=== PATIENT | female | born 1945 | race Caucasian/White ===

== ENCOUNTER → 2023-05-08 09:01 | Outpatient (REF) | payer BC, OTHER, SELFPAY ==
[2023-05-08 09:51] LABS: % Basophils 0.9 % (0-2); % Eosinophils 1.8 % (0-6); % Immature Granulocytes 0.5 % (0-0.5); % Lymphocytes 22.8 % (20.5-51.1); % Monocytes 8.8 % (1.7-9.3); % Neutrophils 65.2 % (42.2-75.2); Absolute Basophils 0.1 10^3/uL (0-0.2); Absolute Eosinophils 0.1 10^3/uL (0-0.7); Absolute Lymphocytes 1.3 10^3/uL (1.2-3.4); Absolute Monocytes 0.5 10^3/uL (0.1-0.6); Absolute Neutrophils 3.6 10^3/uL (1.4-6.5); Hematocrit 35.3 % (37.0-47.0); Hemoglobin 12.2 g/dL (12.0-16.0); Mean Corp Hgb Conc. 34.6 g/dL (33.0-37.0); Mean Corpuscular Hgb 32.9 pg (27.0-31.0); Mean Corpuscular Volume 95.1 fL (81.0-99.0); Mean Platelet Volume 9.1 fL (7.4-10.4); Nucleated Red Blood Cells % 0 %; Platelet Count 327 10^3/uL (130-400); Red Blood Cell Count 3.71 10^6/uL (4.20-5.40); Red Cell Dist. Width 13.8 % (11.5-14.5); White Blood Cell Count 5.5 10^3/uL (4.8-10.8)
[2023-05-08 10:25] LABS: ALT (SGPT) 19 U/L (0-35); AST (SGOT) 24 U/L (14-36); Albumin 4.3 g/dl (3.5-5.0); Alkaline Phosphatase 79 U/L (38-126); Blood Urea Nitrogen 31 mg/dl (7-17); Calcium 9.9 mg/dl (8.4-10.2); Carbon Dioxide 27 mmol/L (22-30); Chloride 102 mmol/L (98-107); Glucose 115 mg/dl (70-99); HDL Cholesterol 53 mg/dl; LDL Cholesterol, Calculated 136 mg/dl; Potassium 4.4 mmol/L (3.5-5.1); Sodium 141 mmol/L (135-145); Total Bilirubin 0.9 mg/dl (0.2-1.3); Total Cholesterol 230 mg/dl (50-199); Total Protein 7.5 g/dl (6.3-8.2); Triglyceride 207 mg/dl (10-149); Very Low Density Lipoprotein 41 mg/dl (0-30); eGFR 58.02
[2023-05-08 10:52] LABS: TSH Reflex To Free T4 2.82 uIU/ml (0.47-4.68)
[2023-05-08 11:00] LABS: Urine Albumin Trace (Neg - Trace); Urine Bilirubin Negative (Negative); Urine Character Clear (Clear); Urine Color Yellow; Urine Glucose Negative (Negative); Urine Ketone Negative (Negative); Urine Leukocyte Negative (Negative); Urine Nitrite Negative (Negative); Urine Occult Blood Negative (Negative); Urine Urobilinogen Negative (Neg - 1+); Urine pH 6.5 (5.0-9.0)
[2023-05-08 13:55] LABS: Glycohemoglobin (HgbA1c) 6.6 % (4.0-5.6)
[2023-05-10 01:43] LABS: SSA 52 (Ro)(ENA) Ab, IgG 1 AU/mL (0-40); SSA 60 (Ro)(ENA) Ab, IgG 1 AU/mL (0-40); SSB (La)(ENA) Ab, IgG 0 AU/mL (0-40)
[2023-05-11 02:04] LABS: Mumps Virus IgM 0.26 IV (<=0.79)
[2023-05-13 14:27] LABS: Mumps Virus IgG Positive
== END ==
LOC: REG 09:01
PROVIDERS: ATTENDING PHYSICIAN Nurse Practitioner Adult Health
DX: Z13.9 Encounter for screening, unspecified (principal); R73.03 Prediabetes; K11.20 Sialoadenitis, unspecified; R68.2 Dry mouth, unspecified
CPT/HCPCS: 36415; 80053; 80061; 81003; 83036; 84443; 85025; 86235; 86735

== ENCOUNTER → 2023-05-21 11:17 | Outpatient (REF) | payer BC, OTHER, SELFPAY | LOC: DHCBC HW 11:17 | PROVIDERS: ATTENDING PHYSICIAN Internal Medicine; FAMILY PHYSICIAN Nurse Practitioner Adult Health | DX: I50.32 Chronic diastolic (congestive) heart failure (principal); R06.09 Other forms of dyspnea | CPT/HCPCS: 93306 ==

== ENCOUNTER 2025-01-11 11:50 | Emergency (ER) | payer BC, OTHER, SELFPAY ==
[2025-01-11 11:57] VITALS: BP 168/88
[2025-01-11 12:36] LABS: Urine Character Clear (Clear)
[2025-01-11 12:38] LABS: Hematocrit 38.7 % (37.0-47.0); Hemoglobin 12.8 g/dL (12.0-16.0); Mean Corp Hgb Conc. 33.1 g/dL (33.0-37.0); Mean Corpuscular Volume 100.3 fL (81.0-99.0); Nucleated Red Blood Cells % 0 %; Platelet Count 326 10^3/uL (130-400); Red Cell Dist. Width 13.3 % (11.5-14.5)
--- NOTE | 2025-01-11 12:52 | ED.GENMED ---
History of Present Illness
General
Chief Complaint: Urinary Symptoms
Source: patient
Exam Limitations: none
Time Seen by Provider: 01/11/25 12:40
Nursing documentation reviewed up to this point in time: agreed with
History of Present Illness
History of Present Illness:
Patient is a 79-year-old female with past medical history of sleep apnea hypertension pacemaker resection hysterectomy presents to the ER for evaluation. Patient reports around 830 this morning she urinated blood. She did have some urgency
afterward feel like she needed to urinate frequently. She also had some pressure in her back. She denies any associated fever chills nausea vomiting. She mentions that she has a a known adrenal mass and never had this biopsied. I did view pt's
previous CAT scan that was done here in 2021 which also states the patient has a solid left renal mass measuring 3.2 x 2.8 cm.
Past History
Past History
ED Past Medical History: COPD, HTN and Psychiatric
ED Past Surgical History: Appendectomy and Other (Cataracts)
Social History
Tobacco: Smoker
Alcohol: None
Drug: None
Personal:
Living: alone
Family History
Family History: Hypertension
Phy Exam
General Physical Exam
General Presentation: no apparent distress
General age: appears stated age
General Skin: warm and dry
General Habitus: elderly
General Hydration: appears well hydrated
Cardiovascular Exam
Cardiovascular Exam: regular rate/rhythm, no murmur and normal peripheral pulses
Pulmonary Exam
Pulmonary Exam: lungs clear and no respiratory distress
Gastrointestinal Exam
Gastrointestinal Exam: non tender, soft and other (old scar non tender no flank pain )
Neurological Exam
Neurological Exam: alert and oriented x3
Musculoskeletal Exam
Musculoskeletal Exam: full ROM
Skin Exam
Skin Exam: normal color and warm/dry
Psychiatric Exam
Psychiatric Exam: normal mood/affect
Course
Orders/Labs/Results
Orders:
Orders
01/11/25 12:12
Complete Blood Count/With Diff Urgent
Comprehensive Metabolic Panel Urgent
01/11/25 12:17
Urinalysis Reflex To Culture Urgent
Date Specimen was Collected: 01/11/25
Time Specimen was Collected: 12:01
Urine Microscopic Reflex Cult Urgent
01/11/25 12:59
CT Abd/pelvis W/wo Iv Cont Urgent
Comment:
Reason For Exam: hematuria /back pain
01/11/25 13:01
0.9% Sodium Chloride 500 ml [Nss] 500 ml IV BOLUS
Abnormal Lab Results
01/11/25 01/11/25
12:12 12:17
RBC 3.86 L 10^6/uL
(4.20-5.40)
MCV 100.3 H fL
(81.0-99.0)
MCH 33.2 H pg
(27.0-31.0)
Absolute Lymphs (auto) 1.1 L 10^3/uL
(1.2-3.4)
Immature Gran % 0.6 H %
(0-0.5)
Lymphocytes % 16.4 L %
(20.5-51.1)
BUN 38 H mg/dl
(7-17)
Glucose 120 H mg/dl
(70-99)
Calcium 10.6 H mg/dl
(8.4-10.2)
Ur Occult Blood Reflex 4+ A
(Negative)
Urine RBC >100 A /HPF
(0-2)
Urine Bacteria (Reflex) Few A
(Negative)
Urine Yeast Few A
(Negative)
Urine Albumin (Reflex) 2+ A
(Neg - Trace)
01/11/25 12:12
01/11/25 12:12
Vital Signs
Initial and Last Documented VS:
Initial Vital Signs
Temp BP
98.5 F 168/88
01/11/25 11:57 01/11/25 11:57
Last Documented Vital Signs
Temp Pulse Resp BP Pulse Ox
98.5 F 88 18 168/88 98
01/11/25 11:57 01/11/25 12:01 01/11/25 12:01 01/11/25 11:57 01/11/25 12:54
Seam Closer consulted with Physician
Seam Closer consulted with physician?: Yes
Name of Physician Consulted: Delmis
MDM/Problems Addressed
Differential Diagnosis Includes:
not limited to: Hematuria, UTI, mass less likely pyelonephritis, less likely renal stone
MDM/Problems Addressed:
As documented patient is a 71-year-old female who presented with hematuria mild back pains and difficulty urinating. She presents awake alert no acute distress. Patient had CAT scan in 2021 which was concerning for renal mass. Patient reports
that at some point she did follow-up with Demetrius Hanna for questionable adrenal mass she was not sure if that she was evaluated for a kidney mass at that time but did not want any further treatment.
CAT scan today shows a large enhancing mass within the upper and mid pole of the left kidney representing renal cell carcinoma. This mass has increased in size compared to prior CT. Her left adrenal nodule is unchanged likely benign. Patient
would like to go home and follow-up as an outpatient. She is on a blood thinner no active hematuria here in the ER. Her hemoglobin is stable at 12.8. She is afebrile she is nontachycardic creatinine 1.0 BUN 38 she was given fluids advised to
increase water intake and urine does not appear infected.
Chronic conditions affecting care:
pt is a smoker
*Radiology
Radiology exam reviewed: radiology read reviewed
*Pulse Oximetry
SaO2: 98
Oxygen Mode of Delivery: Room air
Patient hypoxic: no
*Critical Care Note
Total Time (30-74mins, 75-104mins- exclusive of procedures): Not Applicable
ED Attending Note
-
Portions of this chart may have been created with voice recognition software.� Occasional wrong word or��sound alike� substitutions may have occurred due to the inherent limitations of voice recognition software.
Discharge Plan
Departure
Patient Disposition: Home (Routine Discharge)
Date of Disposition: 01/11/25
Time of Disposition: 15:14
Patient with high blood pressure during this ER visit?: Yes
Condition: Fair
Covid-19: Not Applicable
Discharge Problem:
Left kidney mass
Prescriptions:
No Action
furosemide 40 MG tablet
40 mg PO DAILY
multivitamin with folic acid [Tab-A-Kasia] 1 TABLET tablet
1 tab PO DAILY
magnesium oxide 400 MG tablet
400 mg PO DAILY
loratadine 10 MG tablet
10 mg PO DAILY
Saline Nasal 50 SPRAYS/45 ML aerosol,spray
2 sprays intranasal QIDPRN PRN (Reason: dry nose/congestion) 0RF
amlodipine 5 MG tablet
5 mg PO DAILY Qty: 30 0RF
ondansetron 4 mg tablet,disintegrating
4 mg PO TIDPRN PRN (Reason: nausea/vomiting) Qty: 10 0RF
acetaminophen [Tylenol] 325 mg Tablet
650 mg PO Q6HPRN PRN (Reason: mild pain)
cyanocobalamin (vitamin B-12) 1,000 mcg Tablet
1,000 mcg PO DAILY
lisinopril 20 mg Tablet
20 mg PO DAILY 30 Days Qty: 30 0RF
amoxicillin-pot clavulanate 875-125 mg Tablet
1 tab PO Q12 3 Days Qty: 5 0RF
Rx Instructions:
last day antibiotic 12/31 then stop
minoxidil 2.5 mg Tablet
2.5 mg PO BID@0800,1800 30 Days Qty: 60 0RF
metoprolol tartrate 25 mg Tablet
25 mg PO BID 30 Days Qty: 60 0RF
carboxymethylcellulose sodium [TheraTears] 1 % Dropperette,Gel
1 drp ophthalmic (eye) BID 30 Days Qty: 1 0RF
Refresh Classic (PF) 1.4-0.6 % Dropperette
1 drp ophthalmic (eye) QID 30 Days Qty: 1 0RF
Rx Instructions:
both eyes
valacyclovir 500 mg Tablet
1,000 mg PO TID 3 Days Qty: 7 0RF
Rx Instructions:
last dose 12/31 then stop
prednisone 20 mg Tablet
60 mg PO DAILY 2 Days Qty: 6 0RF
Rx Instructions:
last dose 12/31
Referrals:
Jagdish Henley, DO [Active, Hematology / Oncology]
Priscilla Angelo CRNP [Family Provider, General]
Activity Restrictions/Additional Instructions:
CAT scan is very concerning for renal cell carcinoma. Please follow-up with oncology soon as possible return if any worsening of symptoms. Increase fluids stay very well-hydrated.
Return if any worsening of symptoms of difficulty urinating increased blood in your urine fever chills nausea vomiting or pain.
Interventions
Interventions:
*Risk Screen - Suicide Last Done: 01/11/25 11:57
*General Assessment Last Done: 01/11/25 11:57
*ED- Fall Risk Assessment Last Done: 01/11/25 11:57
*ED COVID-19 Vaccine History Last Done: 01/11/25 11:57
*ED Influenza Vaccine History Last Done: 01/11/25 11:57
Discharge Date and Time
Print Language: FRENCH
[2025-01-11 13:11] LABS: ALT (SGPT) 25 U/L (0-35); AST (SGOT) 21 U/L (14-36); Albumin 4.6 g/dl (3.5-5.0); Alkaline Phosphatase 89 U/L (38-126); Blood Urea Nitrogen 38 mg/dl (7-17); Calcium 10.6 mg/dl (8.4-10.2); Carbon Dioxide 24 mmol/L (22-30); Chloride 104 mmol/L (98-107); Glucose 120 mg/dl (70-99); Potassium 4.4 mmol/L (3.5-5.1); Sodium 135 mmol/L (135-145); Total Protein 7.4 g/dl (6.3-8.2); eGFR 57.66
[2025-01-11 13:13] LABS: Urine Red Blood Cell >100 /HPF (0-2)
[2025-01-11] MEDS: NSS 500 IV (13:37)
== END 2025-01-11 15:38 | disposition home or self-care (01) ==
LOC: EMR 11:50
PROVIDERS: Student in an Organized Health Care Education/Training Program; EMERGENCY PHYSICIAN Emergency Medicine; FAMILY PHYSICIAN Nurse Practitioner Adult Health
DX: N28.89 Other specified disorders of kidney and ureter (principal); I10 Essential (primary) hypertension; G47.30 Sleep apnea, unspecified; F17.200 Nicotine dependence, unspecified, uncomplicated; Z95.0 Presence of cardiac pacemaker
CPT/HCPCS: 99285; 96360; 51798; 74178; 80053; 81003; 81015; 85025; Q9967

== ENCOUNTER → 2025-03-01 14:18 | Outpatient (REF) | payer BC, OTHER, SELFPAY | LOC: RAD 14:18 | PROVIDERS: ATTENDING PHYSICIAN Internal Medicine Hematology & Oncology; FAMILY PHYSICIAN Nurse Practitioner Adult Health | DX: C64.1 Malignant neoplasm of right kidney, except renal pelvis (principal) | CPT/HCPCS: 71260; Q9967 ==